=== PATIENT | male | born 1995 | race Caucasian/White ===

== ENCOUNTER 2016-09-27 20:28 | Emergency (ER) | payer BC ==
[2016-09-27 20:36] VITALS: BP 128/79
--- NOTE | 2016-10-13 15:26 | ED ---
Laceration/Wound HPI - HPI Summary HPI Summary: Patient presents to ED with laceration to the right knuckles from an object. He notes to minimal blood loss. He also thinks he may have strep throat. He denies fevers, chills or sweats. Denies limited ROM. Denies numbness, tingling , temperature or color changes to the area. The area is clean and contains no FB per patient. He has never injured the area before. - History of Current Complaint Stated Complaint: LT HAND LAC Time Seen by Provider: 09/27/16 20:40 Hx Obtained From: Patient Mechanism of Injury: Sharp/Blunt Trauma Onset/Duration: Sudden Onset Aggravating: Movement Alleviating: Compression Timing: Constant Onset Severity: Mild Current Severity: Mild Pain Intensity: 1 Pain Scale Used: 0-10 Numeric Associated Signs & Symptoms: Pain - Allergy/Home Medications Allergies/Adverse Reactions: Allergies Allergy/AdvReac Type Severity Reaction Status Date / Time No Known Allergies Allergy Verified 09/27/16 21:07 PMH/Surg Hx/FS Hx/Imm Hx Previously Healthy: Yes - Immunization History Hx Pertussis Vaccination: No Immunizations Up to Date: Unable to Obtain/Confirm Infectious Disease History: No Infectious Disease History: Denies: Traveled Outside the [place] in Last 30 Days - Social History Occupation: Unemployed Lives: With Family Alcohol Use: Occasionally Hx Substance Use: No Substance Use Type: Reports: None Hx Tobacco Use: No Smoking Status (MU): Never Smoked Tobacco Review of Systems Constitutional: Negative Eyes: Negative Cardiovascular: Negative Respiratory: Negative Positive: no symptoms reported, see HPI Musculoskeletal: Negative Positive: Other Neurological: Negative Psychological: Normal All Other Systems Reviewed And Are Negative: Yes Physical Exam Triage Information Reviewed: Yes Vital Signs On Initial Exam: Initial Vitals Temp Pulse Resp BP Pulse Ox 98.1 F 81 18 128/79 96 09/27/16 20:34 09/27/16 20:34 09/27/16 20:34 09/27/16 20:34 09/27/16 20:34 Vital Signs Reviewed: Yes Appearance: Positive: Well-Appearing, Well-Nourished Skin: Positive: Warm, Skin Color Reflects Adequate Perfusion, Other - several abrasions to the right knuckles Head/Face: Positive: Normal Head/Face Inspection Eyes: Positive: EOMI, TALIA, Conjunctiva Clear ENT: Positive: Pharyngeal erythema Neck: Positive: Supple, No Lymphadenopathy Respiratory/Lung Sounds: Positive: Clear to Auscultation, Breath Sounds Present Cardiovascular: Positive: Normal, RRR, Pulses are Symmetrical in both Upper and Lower Extremities Musculoskeletal: Positive: Normal, Strength/ROM Intact Neurological: Positive: Normal, Sensory/Motor Intact Psychiatric: Positive: Normal AVPU Assessment: Alert Diagnostics - Vital Signs Vital Signs Temp Pulse Resp BP Pulse Ox 09/27/16 20:47 98.1 F 81 18 128/79 96 09/27/16 20:34 98.1 F 81 18 128/79 96 - Laboratory Lab Results: Lab Results 09/27/16 Range/Units 20:47 Group A Strep Rapid Negative (Negative) Lab Statement: Any lab studies that have been ordered have been reviewed, and results considered in the medical decision making process. Laceration Repair Course/Dx - Course Course Of Treatment: several abrasions to the right knuckles. patients wounds were bandaged with gauze and wrapped. Strep negative. Patient will follow up as needed. - Differential Dx Differental Diagnoses: Joint Infection, Laceration, Tendon Laceration - Clinical Impression Provider Diagnoses: Abrasion Discharge - Discharge Plan Condition: Stable Disposition: HOME Patient Education Materials: Skin Adhesive Care (ED), Steristrips (ED) Referrals: Non Staff,Doctor [Primary Care Provider] - Additional Instructions: Follow up or return to ED if symptoms persist.
== END 2016-09-27 21:21 | disposition home or self-care (01) ==
LOC: ED 20:28
DX: S60.419A Abrasion of unspecified finger, initial encounter (principal); W45.8XXA Other foreign body or object entering through skin, initial encounter; Y93.9 Activity, unspecified; Y92.9 Unspecified place or not applicable
CPT/HCPCS: 87651; 99282